=== PATIENT | male | born 1955 | race Caucasian/White ===

== ENCOUNTER → 2024-07-17 15:12 | Outpatient (REF) | payer MEDICARE, SELFPAY | LOC: HWRAD 15:12 | PROVIDERS: ATTENDING PHYSICIAN Specialist; FAMILY PHYSICIAN Family Medicine | DX: R33.9 Retention of urine, unspecified (principal); N31.9 Neuromuscular dysfunction of bladder, unspecified | CPT/HCPCS: 76775 ==